=== PATIENT | female | born 1975 | race Caucasian/White ===

== ENCOUNTER 2024-09-20 10:00 | Outpatient (RCR) | payer MEDICAID, SELFPAY ==
--- NOTE | 2024-09-02 09:27 | PT.ODAYNRPT ---
PT Outpatient Daily Note OP Daily Note Outpatient Physical Therapy Treatment Date: 09/02/24 Visit Reasons: rotator cuff Subjective: Pt's shoulder is better and moving higher overhead with less pain Objective: Please see flow chart for list of ther ex performed Assessment: progressing with shoulder AAROM in all plane. cues to correct TB walkout to achieve better form Plan: Continue with PT Length of Time (minutes) of Treatment: 30 Minutes Procedure Charges Therapeutic Exercise 30 minutes: Yes
--- NOTE | 2024-09-14 10:28 | PT.ODAYNRPT ---
PT Outpatient Daily Note OP Daily Note Outpatient Physical Therapy Treatment Date: 09/14/24 Visit Reasons: rotator cuff Subjective: Pt reports R shoulder is doing ok, no complaints to offer. Objective: Please see flow sheet for ther ex list. Assessment: Progressing interventions as per post op protocol, pt tolerated with no complaints. Plan: Continue with POC. Length of Time (minutes) of Treatment: 30 Minutes Procedure Charges Therapeutic Exercise 30 minutes: Yes
--- NOTE | 2024-09-20 11:07 | PT.ODAYNRPT ---
PT Outpatient Daily Note OP Daily Note Outpatient Physical Therapy Treatment Date: 09/20/24 Visit Reasons: rotator cuff Subjective: Pt recently seen surgeon and is happy with progress so far. Pt's shoulder feels good overall. Objective: Please see flow chart for list of ther ex performed Assessment: progressing with shoulder AROM and added resistance to shoulder exercises with good tolerance Plan: Continue with PT Length of Time (minutes) of Treatment: 30 Minutes Procedure Charges Therapeutic Exercise 30 minutes: Yes
== END 2024-09-24 23:59 | disposition home or self-care (01) ==
LOC: CPTX 10:00
PROVIDERS: PCP Orthopaedic Surgery; Referring Provider Orthopaedic Surgery; Visit Provider Orthopaedic Surgery
DX: M25.512 Pain in left shoulder (principal); Z98.890 Other specified postprocedural states
CPT/HCPCS: 97110

== ENCOUNTER 2024-09-30 09:30 | Outpatient (RCR) | payer MEDICAID, SELFPAY ==
--- NOTE | 2024-09-28 13:19 | PT.ODS1RPT ---
PT OP Progress/Discharge Note Date of Service: 09/28/24 Progress Note/DC Note Progress Note/Discharge Note: Progress Note Patient Information Visit Reasons: Rotator cuff Medical Diagnosis: Left Rotator Cuff Tear Treatment Dx #1: Left Shoulder Mobility Deficits Service Continue Service or Discharge: Discharge Discharge Date: 09/28/24 Status Subjective: Pt's shoulder is much better. Pt mention she can move her arm overhead, self care, cook, and clean with less limitation. Pt still has limitation with lifting objects, performing recreational activities, and reaching behind her back. Objective: Left Shoulder AROM Flexion: 160 deg Abduction: 150 deg External Rotation: 90 deg Internal Rotation: 60 deg Left Shoulder MMTs: grossly 3+/5 Left Scapula MMTs: grossly 3+/5 HBB AROM: thumb at T9 Assessment: Pt is improving with left shoulder AROM and strength allowing her to start light ADLs, lifting, and overhead motions with less limitation. Pt has not met set goals and will continue to benefit from physical therapy to increase ROM, strength, and work on stability. Plan: Continue with PT/POC and add 12 sessions (2 x wk for 6 wks) Procedure Charges Therapeutic Exercise 30 minutes: Yes
--- NOTE | 2024-09-30 10:32 | PT.ODAYNRPT ---
PT Outpatient Daily Note OP Daily Note Outpatient Physical Therapy Treatment Date: 09/30/24 Visit Reasons: Rotator cuff Subjective: Pt's shoulder feels good. No new concerns to report. Objective: Please see flow chart for list of ther ex performed Assessment: demonstrate good form with shoulder 4 ways. Pt is ready to be progress to RTB next session Plan: Continue with PT Length of Time (minutes) of Treatment: 30 Minutes Procedure Charges Therapeutic Exercise 30 minutes: Yes
== END 2024-10-25 23:59 | disposition home or self-care (01) ==
LOC: CPTX 09:30
PROVIDERS: PCP Orthopaedic Surgery; Referring Provider Orthopaedic Surgery; Visit Provider Orthopaedic Surgery
DX: M25.512 Pain in left shoulder (principal); Z98.890 Other specified postprocedural states
CPT/HCPCS: 97110

== ENCOUNTER 2024-11-04 08:30 | Outpatient (RCR) | payer MEDICAID, SELFPAY ==
--- NOTE | 2024-10-28 11:57 | PT.ODAYNRPT ---
PT Outpatient Daily Note OP Daily Note Outpatient Physical Therapy Treatment Date: 10/28/24 Visit Reasons: Rotator cuff Subjective: Pt's shoulder feels good but weak. Pt has a follow up appt with surgeon next week. Pt wants to see if she can return back to work. Objective: Please see flow chart for list of ther ex performed Assessment: progressing shoulder exercises with 1# weight with good tolerance and form. Plan: Continue with PT Length of Time (minutes) of Treatment: 30 Minutes Procedure Charges Therapeutic Exercise 30 minutes: Yes
--- NOTE | 2024-11-02 09:51 | PT.ODAYNRPT ---
PT Outpatient Daily Note OP Daily Note Outpatient Physical Therapy Treatment Date: 11/02/24 Visit Reasons: Rotator cuff Subjective: Pt's shoulder feels stiff and still hurts more at then end range. Objective: Please see flow chart for list of ther ex performed Assessment: difficulty with PNF exercise with 1# weight, however, able to complete instructed reps. Pt encouraged to perform sleeper stretch with shoulder ER as HEP to help improved post capsule Plan: Continue with PT Length of Time (minutes) of Treatment: 30 Minutes Procedure Charges Therapeutic Exercise 30 minutes: Yes
--- NOTE | 2024-11-04 09:55 | PT.ODAYNRPT ---
PT Outpatient Daily Note OP Daily Note Outpatient Physical Therapy Treatment Date: 11/04/24 Visit Reasons: Rotator cuff Subjective: Pt's shoulder sore. Pt seen surgeon and wants her to continue physical therapy. Surgeon did not release her back to work yet. Objective: Please see flow chart for list of ther ex performed Assessment: progressing patient to 2# weight with all exercises with good tolerance Plan: Continue with PT Length of Time (minutes) of Treatment: 30 Minutes Procedure Charges Therapeutic Exercise 30 minutes: Yes
== END 2024-11-25 23:59 | disposition home or self-care (01) ==
LOC: CPTX 08:30
PROVIDERS: PCP Orthopaedic Surgery; Referring Provider Orthopaedic Surgery; Visit Provider Orthopaedic Surgery
DX: M25.512 Pain in left shoulder (principal); Z98.890 Other specified postprocedural states
CPT/HCPCS: 97110

== ENCOUNTER 2025-01-21 17:51 | Emergency (ER) | payer MEDICAID, SELFPAY ==
--- NOTE | 2025-01-21 18:00 | PC.NURSE ---
PT STATING SHE NEEDS TO LEAVE. LEFT BEFORE MEDICAL SCREENING.
== END 2025-01-21 18:05 | disposition left against medical advice (07) ==
PROVIDERS: Emergency Provider Emergency Medicine
DX: Z53.21 Procedure and treatment not carried out due to patient leaving prior to being seen by health care provider (principal)